=== PATIENT | female | born 1955 | race Caucasian/White ===

== ENCOUNTER → 2016-12-19 | Outpatient (CLI) | payer BC ==
[~2016-12-19] MED LIST: ALBU18002 INH; ALBU1AER9 INH; ASPI325T45 PO; ASPI81TA28 PO; ATOR-24 PO; DEXT30TA7 PO; DICY10CA12 PO; ESOM20CA PO; GABA-113 PO; GLUCTAB7 PO; HYDR-5688 PO; IBUP-103 PO; MULT-506 PO; PANT40TA PO; PROB1TAB16 PO
--- NOTE | 2016-12-19 13:13 | MAMMOGRAPHY REPORT ---
BILATERAL DIGITAL SCREENING MAMMOGRAM TOMOSYNTHESIS WITH CAD: 12/19/2016 CLINICAL HISTORY: Routine screening. Patient has no complaints. TECHNIQUE: Breast tomosynthesis in addition to standard 2D mammography was performed. Current study was also evaluated with a Computer Aided Detection (CAD) system. COMPARISON: Comparison is made to exams dated: 12/16/2015 mammogram, 12/14/2014 mammogram, 10/08/2013 brandy mogram, 09/07/2009 mammogram - [facility], 09/06/2008, and 09/05/2007. BREAST COMPOSITION: There are scattered areas of fibroglandular density in both breasts. FINDINGS: No suspicious masses, calcifications, or areas of architectural distortion are noted in ei ther breast. There has been no significant interval change compared to prior exams. IMPRESSION: ACR BI-RADS CATEGORY 1: NEGATIVE There is no mammographic evidence of malignancy. A 1 year screening mammogram is recommended. The pa tient will receive written notification of the results. Approximately 10% of breast cancers are not detected with mammography. A negative mammographic report should not delay biopsy if a clinically suggestive mass is present. Tiny Corley M.D. /:12/19/2016 07:45:38 Medicinal Plant Picker: Madeline Randle, M, [facility] letter sent: Normal 1/2 BI-RADS Code: ACR BI-RADS Category 1: Negative
== END ==
LOC: C.MAMM 07:26
PROVIDERS: ATTEND Family Medicine
DX: Z12.31 Encounter for screening mammogram for malignant neoplasm of breast (principal)

== ENCOUNTER → 2017-02-05 | Outpatient (CLI) | payer BC | END | disposition home or self-care (01) | LOC: C.RDSM 14:00 | PROVIDERS: ATTEND Physical Medicine & Rehabilitation Sports Medicine | DX: M25.561 Pain in right knee (principal) ==

== ENCOUNTER → 2017-04-08 | Outpatient (CLI) | payer BC ==
--- NOTE | 2017-04-08 12:17 | DIAGNOSTIC IMAGING REPORT ---
L LOWER EXT JOINT WITHOUT CLINICAL HISTORY: 61 years-old Female presenting with medial left knee pain for 1 month, right knee pain, possible overcompensating on left knee. TECHNIQUE: Multisequence, multiplanar MR imaging of the left knee was performed without the use of intravenous contrast. IV contrast: None. COMPARISON: Plain radiographs from 05/16/2015. FINDINGS: Localizer images: Unremarkable. Bony edema noted in the medial femoral condyle along the mid weightbearing portion with an irregular hypointense line delineating a separate subchondral lenticular region, consistent with an osteochondral lesion. No linear hyperintense signal to suggest an unstable fragment. The overlying articular cartilage demonstrates a focal defect at the posterior aspect, which is full-thickness and measures 4 x 5 mm (grade 4 cartilage injury). Remaining articular cartilage intact except for the superior aspect of the medial patellar facet, which demonstrates full-thickness fissuring and subjacent subchondral cystic change (grade 4 cartilage injury). Significantly increased signal intensity primarily within the intrasubstance portion of the junction of the posterior horn and body of the medial meniscus likely indicates advanced degenerative change (series 6 image 19). Minimal increased signal intensity may approach the femoral articular surface laterally, although this is questionable. Lateral meniscus intact. Anterior and posterior cruciate ligaments intact. Mild thickening of the origin of the medial collateral ligament with edema both superficial and deep to the MCL suggests grade 1 sprain. Lateral collateral ligament complex intact, including the biceps femoris tendon, fibular collateral ligament, popliteus tendon, and iliotibial band. Quadriceps and patellar tendons intact. Extensive prepatellar subcutaneous edema and trace laminar fluid. Medial and lateral patellar retinacula intact. Small knee joint effusion. Small popliteal cyst. Normal muscle bulk and signal intensity. IMPRESSION: 1. Findings consistent with osteochondral lesion of the medial femoral condyle in the mid weightbearing portion. This does not appear to be unstable. Extensive associated bony edema in the medial femoral condyle. Adjacent full-thickness cartilage defect as described above. 2. Full thickness fissuring and subchondral cystic change at the superior aspect of the medial patellar facet. 3. Significant degenerative change of the medial meniscus at the junction of the posterior horn and body with a questionable complex tear. 4. Grade 1 MCL sprain. 5. Prepatellar subcutaneous edema and trace laminar fluid could suggest prepatellar bursitis. 6. Small effusion. Electronically signed by: Teofilo Grossman M.D. 04/08/2017 12:16 PM Dictated Date/Time: 04/08/2017 12:03 PM
== END | disposition home or self-care (01) ==
LOC: C.MRI 10:36
PROVIDERS: ATTEND Physical Medicine & Rehabilitation Sports Medicine
DX: M25.562 Pain in left knee (principal)

== ENCOUNTER → 2017-04-18 | Day surgery (SDC) | payer BC ==
--- NOTE | 2017-04-12 14:58 | History and Physical ---
History & Physical Date & Time of Service: Apr 12, 2017 at 14:43 Chief Complaint: Left Knee Medial Meniscus Tear, Chondromalacia Primary Care Physician: Apryl Bridges D.O. History of Present Illness Source: patient The patient is a 61-year-old female who has been seen and evaluated by Dr. Mcrae as an outpatient for her left knee pain. She developed pain in her left knee in February. She denied any injuries but states the pain in the medial aspect of her left knee started in the beginning of February. She states that she does have pain at night. Pain noted is achy and radiates down her apple.She had had previous right knee problems and when she received a corticosteroid injection in her right knee did well with that. She agreed to corticosteroid injection and her left knee gently gave her a few days relief. X-rays were obtained and found some moderate arthritis of her right knee but no significant arthritis or bony abnormality of her left knee. Due to her continued symptoms and MRI was ordered and she was found to have a complex tear of her medial meniscus as well as medial compartment chondrosis. Due to these findings and her progressively worsening left knee pain surgical intervention was discussed. She agreed to proceed and is scheduled for left knee arthroscopy partial medial meniscectomy and chondroplasty with Dr. Mcrae on April 18, 2017 at the [facility] [place]. Past Medical/Surgical History 1. High cholesterol 2. Lumbar disc disease and spinal stenosis 3. Acid reflux 4. Small hiatal hernia 5. Osteoarthritis 6. She states that after her previous surgeries are carpal tunnel she did develop C. difficile. Social History Smoking Status: Never Smoker Smokeless Tobacco Use: No Alcohol Use: none Drug Use: none Multi-Drug Resistant Organisms History of MDRO: No Allergies Coded Allergies: Amoxicillin (Verified Allergy, Unknown, RASH, 02/23/16) Home Medications Scheduled Aspirin (Aspirin Ec), 81 MG PO QAM Atorvastatin (Lipitor), 40 MG PO QPM Gabapentin (Neurontin), 300 MG PO BID Multivitamin (Multivitamin), 1 TAB PO QAM Pantoprazole (Protonix), 40 MG PO QAM Scheduled PRN Albuterol (Proair Hfa), 1 PUFF INH for PRN Dicyclomine Hcl (Dicyclomine Hcl), 1 CAP PO TID PRN for IBS Ibuprofen Tab (Advil), 200-600 MG PO AMPM PRN for Pain Review of Systems Constitutional: No fever, No chills, No sweats, No weight loss Eyes: No worsening of vision, No eye pain, No redness ENT: No hearing loss, No nasal symptoms, No sore throat, No tinnitus, No dental problems Respiratory: No cough, No sputum, No wheezing, No shortness of breath, No dyspnea on exertion, No dyspnea at rest Cardiovascular: No chest pain, No edema, No palpitations Abdomen: No pain, No nausea, No vomiting, No diarrhea, No constipation Musculoskeletal: + joint pain (Left knee pain medially and posteriorly), No swelling, No calf pain Genitourinary - Female: No dysuria, No urinary frequency, No urinary urgency, No urinary incontinence, No urinary retention Neurologic: No memory loss, No numbness/tingling, No balance problems Psychiatric: No depression symptoms, No anxiety Endocrine: No fatigue Hematologic / Lymphatic: No abnormal bleeding/bruising, No clotting problems Integumentary: No rash, No itch Allergic / Immunologic: No poor healing Physical Exam General Appearance: WD/WN, no apparent distress Head: normocephalic, atraumatic Eyes: normal inspection, PERRL, EOMI, sclerae normal ENT: normal ENT inspection, hearing grossly normal, TMs normal, pharynx normal Neck: supple, no carotid bruits, trachea midline Respiratory/Chest: chest non-tender, lungs clear, normal breath sounds, no respiratory distress, no accessory muscle use Cardiovascular: regular rate, rhythm, no edema, no murmur, normal peripheral pulses Abdomen/GI: normal bowel sounds, non tender, soft Extremities/Musculoskelatal: normal inspection, no calf tenderness, normal capillary refill, no pedal edema, + pertinent finding (Exam of left knee: No effusion. No atrophy. Ambulates normally with no assistive device. Neutral alignment. Full range of motion of her left hip without discomfort. Dorsalis pedis pulses 1+. Active straight leg raise intact. Strength is 5 out of 5 and equal bilaterally. Range of motion of her left knee is 2/0/125. Cruciate and collateral ligaments are stable. Flexion circumduction testing is negative. Tenderness with palpation of her medial joint line.) Neurologic/Psych: no motor/sensory deficits, alert, normal mood/affect, normal reflexes, oriented x 3 Skin: normal color, warm/dry, no rash Lymphatic: no adenopathy Diagnostics No change from prior EKG Impression Assessment and Plan Assessment: Left knee medial meniscal tear, medial compartment chondrosis Plan: Patient is scheduled for left knee arthroscopy partial medial meniscectomy and chondroplasty with Dr. Mcrae. Has surgery scheduled for April 18, 2017 at the [facility]. Risks and complications were discussed and include but are not limited to infection, pain, bleeding, scarring, wound problems, weakness, nerve and blood vessel damage, incomplete relief of symptoms, recurrent tear, blood clots, embolisms, heart attack, stroke , . Informed consent was obtained by Dr. Mcrae. She does not require preoperative medical or cardiac clearance prior to surgery. 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 She will be nothing by mouth after midnight the night before surgery. She is given a prescription for [place] for postoperative pain control. We will use aspirin 325 mg twice daily for 21 days postoperatively for DVT prophylaxis. No lab work is necessary prior surgery. I will obtain a preoperative EKG she will do at the [facility]. All questions were answered today and she will call with any further problems, questions, or concerns. Resuscitation Status FULL RESUSCITATION Additional Copies To Apryl Bridges D.O.
[2017-04-15 07:36] VITALS: Ht 161.3 cm; Wt 73.6 kg
[~2017-04-18] VITALS: Ht 161.3 cm; Wt 73.6 kg
[~2017-04-18] MED LIST changes: -ALBU1AER9 INH; +ATROPINE SULFATE 0.1 MG/ML 5ML SYR IV PRN; +CEFAZOLIN IV 2,000 MG/60 ML D5W IV ONE; +CLINDAMYCIN PHOS 150 MG/ML 2 ML VIAL IV SCH; +DEXAMETHASONE SOD INJ 4 MG/ML VIAL ONE; +EpHEDrine SULFATE 50MG/5ML SYR ONE; +EpHEDrine SULFATE INJ 50 MG/ML AMP IV PRN; +FENTANYL CITRATE INJ 50 MCG/1 ML 2 ML VIAL IV PRN; +FENTANYL CITRATE INJ 50 MCG/1 ML 2 ML VIAL ONE; +KETOROLAC TROMETHAMINE 30 MG/ML VIAL ONE; +LACTATED RINGER'S 1000ML 1,000 ML IV SCH; +LIDOCAINE HCL 2% 2 ML VIAL (20MG/ML) ONE; +LIDOCAINE/EPINEPHRINE 1% INJ 50 ML VIAL ONE; +MIDAZOLAM HCL 1 MG/ML 2ML VIAL ONE; +MoRPHine SULFATE 4 MG/ML 1 ML CARP\\VIAL IV PRN; +ONDANSETRON INJ 2 MG/ML 2 ML VIAL IV PRN; +ONDANSETRON INJ 2 MG/ML 2 ML VIAL ONE; +OXYCODONE/ACETAMINOPHEN 5-325 TAB PO PRN; -PANT40TA PO; +PROPOFOL IV EMULSION 10 MG/ML 20 ML VIAL IV ONE; +SODIUM CHLORIDE 0.9% 1000ML 1,000 ML IV SCH
--- NOTE | 2017-04-18 08:57 | History & Physical Bridge Note ---
H&P Re-Evaluation Bridge Note: I have examined the patient, reviewed the History & Physical and in the interval since the performance of the History & Physical I have noted the following changes of clinical significance: No changes noted
--- NOTE | 2017-04-18 10:50 | Discharge Instructions-SurgCtr ---
Discharge Instructions Date of Service Apr 18, 2017. Visit Reason for Visit: Left Knee Medial Meniscus Tear, Chondromalacia Discharge Discharge Diagnosis / Problem: left knee medial meniscal tear. Chondromalacia. Discharge Goals Goal(s): Decrease discomfort, Improve function, Increase independence Medications Stopped Medications Name(s): stopped advil Saturday Restart Stopped Medication(s): Okay to resume Advil today. Please start taking aspirin 325 mg tonight with dinner if tolerating food. Activity Recommendations Activity Limitations: per Instructions/Follow-up section Weightbearing Status: Left weightbearing (as tolerated with assistance of crutches or walker) Anesthesia . Post Anesthesia Instructions: If you have had General Anesthesia or IV Sedation: * Do not drive today. * Resume driving when surgeon permits. * Do not make important decisions or sign legal documents today. * Call surgeon for: 1. Temperature elevations greater than 101 degrees F. 2. Uncontrollable pain. 3. Excessive bleeding. 4. Persistent nausea and vomiting. 5. Medication intolerance (nausea, vomiting or rash). * For nausea and vomiting use only clear liquids such as: tea, soda, bouillon until nausea subsides, then gradually increase diet as tolerated. * If you have any concerns or questions, call your surgeon's office. If physician is unavailable and it is an emergency, call 911 or go to the nearest emergency room. . Instructions / Follow-Up Instructions / Follow-Up The following are instructions to follow after your Arthroscopic Knee Surgery. ACTIVITY RECOMMENDATIONS: * Minimize activity until your first visit after surgery. * No excessive walking, jogging, sports or laboring. * Return to activity is individualized. Most patients are able to return to every day activities within one month. * Return to sports or intensive labor usually occurs at 2-3 months. * Driving is not permitted until at least your first postoperative visit at a minimum. Please ask your doctor when it is safe to resume driving. If you have an automatic vehicle and your left leg has been operated on, then you may begin driving as soon as you are comfortable and can drive safely. SCHOOL/WORK RECOMMENDATIONS: * You may return to sedentary work or school when you are feeling more comfortable. This is usually 3-7 days after surgery. * Expect increased discomfort with increased activity. Continue to elevate and ice the leg as much as possible. MEDICATIONS: * You will have a prescription for pain medication and an anti-inflammatory medication after surgery. * Use the pain medication for severe pain and the anti-inflammatory for less severe pain. Once the pain medication has run out, try to use the anti-inflammatory medication. If this is not effective, contact the office for assistance. * The pain medication may cause nausea, constipation and drowsiness. You should see how they affect you before driving or similar activity. * The anti-inflammatory medication may cause stomach upset and bleeding. If this occurs let your doctor know immediately . * Take a stool softener like Colace or a laxative like Senokot to prevent constipation. DIET: * Resume previous diet. SPECIAL CARE: ICE: You have the option of an ice cooler, gel packs or ice bags. * If you have an ice cooler, refer to the instructions for that device. The ice cooler may be used continuously. * If you do not have an ice cooler, you will need to use ice bags or gel packs. Do not apply ice directly to the skin. Use a thin dressing or eileen shirt between the skin and ice bag. Apply ice for 20-30 minutes and repeat every 2-4 hours. This is especially important for the first 7-10 days after surgery. Once the pain improves, use ice as needed. ELEVATION: * Keep your leg elevated at or above the level of your heart as much as possible. * Expect some increased discomfort and swelling if you are standing for any length of time. * When lying down, avoid placing anything under your knee. Rather, prop your leg up by placing several pillows under your heel or calf. DRESSING: * Your dressing will be changed at your first therapy appointment approximately 4-5 days after surgery. Band-aids, tape strips or gauze may be applied. You may then change your dressing daily. * Reapply dressing followed by the Carlos wrap or Tubi-mortician investigator stockinet and EBIce cooling pad (if chosen). * Always wash your hands prior to touching the incision area. * Once the stitches are removed, you may leave the wound open to air or cover with an Carlos wrap or Tubi-mortician investigator stockinet. * If you have been given a white elastic stocking (RAMIREZ hose), wear as much as possible for the first 1-3 weeks depending on swelling. * Expect some bloody drainage for the first few days after surgery. * Leave the tape strips, if present, in place for 5-7 days. * Band-aids and gauze may be changed daily. CRUTCHES: * You will need to use crutches after surgery. * You may gradually progress to full weight bearing as tolerated and wean off the crutches unless otherwise advised. * Your therapist can provide assistance weaning off crutches. * Patients who have a microfracture done may need to be toe-touch weight- bearing for 4-6 weeks. BATHING: * You may shower or sponge-bathe immediately after surgery. * The dressing will need to be covered with a plastic bag or plastic wrap until the dressing is changed on the fourth or fifth day after surgery. * Once the dressing has been changed on the fourth or fifth day after surgery, you may shower and get the incision wet. * Wash with regular soap and water. * Do not bathe (submerge the incision), soak, swim or use a hot tub until the incision is completely healed over with normal skin and the doctor has given the OK to proceed. * There is no need to apply any ointments, powders or salves to your incision. * Do not apply alcohol or hydrogen peroxide directly to the incision. * Diluted peroxide (50:50 mixture with sterile saline) may be used to clean dried blood from around the incision area. BRACE: * Bracing is generally not needed after routine Arthroscopic Knee surgery. THERAPY: * You will begin therapy four or five days after surgery. * Organized therapy with the therapist is important for the first 4-6 weeks after surgery. During that time you will attend therapy 1-3 times per week. * You will also need to do daily exercises for range of motion and strength as instructed. PROBLEMS/QUESTIONS: * If you have any problems such as severe pain, numbness, tingling or high fevers or if you have any questions, please contact the office at [phone]. * It is not uncommon to have some numbness and tingling after the surgery especially if you have had a nerve block done. This should gradually improve over the first 1- 2 days. If this persists longer or worsens please contact the office. FOLLOW UP VISIT: * If not already scheduled, please call the office at to schedule a follow-up appointment for 10 days, 6 weeks and 3 months after surgery. * You will have a physical therapy appointment on 04/23/2017 at 10:30 AM. * You have a follow-up scheduled with Dr. Mcrae on 05/01/2017 at 2:15 PM Diet Recommendations Home Diet: no limitations, resume previous diet Procedures Procedures Performed: Left Knee Arthroscopy Partial Medial and Lateral Meniscectomy, Chondroplasty of the Medial Femoral Condyl and Synovectomy Pending Studies Studies pending at discharge: no Medical Emergencies . Who to Call and When: Medical Emergencies: If at any time you feel your situation is an emergency, please call 911 immediately. . Non-Emergent Contact Non-Emergency issues call your: Surgeon Call Non-Emergent contact if: temperature is above 101, your pain is not controlled, wound has increased drainage, wound has increased redness, wound has increased pain, you have any medication questions . . "Provider Documentation" section prepared by Mylene Ortiz. . [place] Drug Monitoring Program Search Results: patient reviewed within database, no issues identified
--- NOTE | 2017-04-18 11:00 | [facility] Operative Report ---
Operative Report Operative Date Apr 18, 2017. Pre-Operative Diagnosis Left knee medial mensicus tear, chondromalacia Post-Operative Diagnosis Same as pre-op Procedure(s) Performed Left Knee Arthroscopy Partial Medial and Lateral Meniscectomy, Chondroplasty of the Medial Femoral Condyl and Synovectomy Surgeon Dr. Mcrae Commutator Tester Surgeon(s) Dr. Reji Rivera; Mylene Ortiz PA-C Estimated Blood Loss 10ML Findings degenerative medial and lateral meniscal tears Specimens None Drains none Anesthesia Gen. Disposition Recovery Room / PACU (stable) Indications She is a 61-year-old female with complaints of left knee pain times many months. She failed conservative treatment with and had persistent and worsening knee pain. X-rays and MRI was obtained. She was found to have a medial meniscal root tear and surgical intervention was recommended. X-rays were negative for significant joint space narrowing. She agreed to proceed with surgery. Risks and complications were discussed. Informed consent was obtained. Description of Procedure Patient was taken to the operating room and placed under general anesthesia. She was given 2 g of IV Ancef for surgical prophylaxis which she tolerated well. Timeout was performed. She was prepped and draped in routine sterile fashion. I was present during the entire case, please see Dr. Mcrae's operative report for further detail. Patient was awakened and transferred to the recovery room in stable condition. I attest to the content of the Intraoperative Record and any orders documented therein. Any exceptions are noted below.
--- NOTE | 2017-04-18 11:06 | [facility] Post Operative Brief Note ---
Immediate Operative Summary Operative Date Apr 18, 2017. Pre-Operative Diagnosis Left knee medial mensicus tear, chondromalacia Post-Operative Diagnosis Same as pre-op medial and lateral meniscal repairs grade 2 and 3 chondrosis and 4 chondrosis of the medial femoral condyle grade 1 chondrosis of the lateral tibial plateau Procedure(s) Performed Left Knee Arthroscopy Partial Medial and Lateral Meniscectomy, Chondroplasty of the Medial Femoral Condyl and Synovectomy Surgeon Dr. Mcrae Infant Room Teacher Surgeon(s) Dr. Reji Rivera; Mylene Ortiz PA-C Estimated Blood Loss 10ML Findings As above Specimens None Anesthesia laryngeal mask Complication(s) None Disposition Recovery Room / PACU
[2017-04-18 11:34] VITALS: TEMP 36.2
--- NOTE | 2017-04-18 12:03 | [facility] Operative Report ---
Operative Report Operative Date Apr 18, 2017. Pre-Operative Diagnosis Left knee medial mensicus tear, chondromalacia Post-Operative Diagnosis Same as pre-op medial and lateral meniscal repairs grade 2 and 3 chondrosis and 4 chondrosis of the medial femoral condyle grade 1 chondrosis of the lateral tibial plateau Procedure(s) Performed Left Knee Arthroscopy Partial Medial and Lateral Meniscectomy, Chondroplasty of the Medial Femoral Condyl and Synovectomy Surgeon Dr. Mcrae Pipe Manufacture Supervisor Surgeon(s) Dr. Reji Rivera; Mylene Ortiz PA-C Estimated Blood Loss 10ML Findings Medial and lateral posterior horn meniscal root tears. Grade 1 chondrosis of lateral femoral condyle. Grade 2-4 chondrosis medial femoral condyle. Specimens None Drains none Anesthesia laryngeal mask Complication(s) None Disposition Recovery Room / PACU Implants None Indications The patient's a 61-year-old female with left knee pain refractory to nonsurgical methods of management. MRI shows that she has a medial meniscal root tear and medial compartment chondrosis as well as bone edema consistent with medial compartment overload. Description of Procedure Informed consent was obtained. The patient identified as Zoraida Jama. She identified the operative site as the left knee. I marked with my initials. Preoperative surgical timeout was performed a preoperative dose of IV antibiotics was given. She reports developing C. difficile with prior dosage of clindamycin. She has a penicillin allergy. We talked about the risks and benefits and she elected to change her and antibiotic preoperatively to Ancef. She did not have any allergic reaction upon administration of this medication. DVT prophylaxis will be done intraoperatively with foot pumps postoperatively with early mobility and aspirin. The examination under anesthesia revealed a moderate left knee effusion range of motion 3/0/135 she had intact cruciate and collateral stability. The left lower extremity was prepped and draped in the usual sterile fashion. A tourniquet was not utilized. A lateral post was used for stressing the knee. Bony prominences were inspected and padded. Knee joint fat pad and portals were injected with 1% lidocaine with epinephrine preoperatively. Inferolateral viewing portal superior lateral outflow portal and inferomedial working portals were established. A small effusion consisting of yellowish fluid was evacuated. There was synovitis in the suprapatellar pouch which was debrided. The articular surface of the patella looked normal. The MRI indicated some chondrosis on the medial patella which was not notably abnormal on visual inspection. The trochlea was normal. The medial and lateral gutters were unremarkable there were no loose bodies. The retropatellar fat pad was resected. Lateral compartment showed grade 1 changes diffusely about the lateral tibial plateau and lateral femoral condyle. There was some fraying along the inner rim of the lateral meniscus which was debrided. There was significant fraying and degeneration at the posterior root attachment this was debrided. The meniscus was stable. A fair portion of the root attachment was compromised. This was not a repairable situation. I think that she did have intact meniscal femoral ligaments. The posterior lateral compartment was visualized and utilized to help in evaluating the lateral meniscus. The medial compartment showed fairly normal tibial plateau. There was a vertically oriented root tear of the medial meniscus. The meniscus was stable. Synovitis around the meniscal root was debrided and the edges of the tear was beveled with a basket biter. The posterior medial compartment was also visualized demonstrating the tear. There was extensive chondrosis 1 cm 3 cm. This was mostly grade 2 anteriorly but mostly grade 3 and 4 in the posterior half. The rere used to perform a chondroplasty. I do not think microfracture would be indicated in this situation. Rere on through need a pickup loose debris The portals were closed with 4 nylon a soft sterile dressing was applied. She was awakened from anesthesia without difficulty and taken to the recovery room in stable condition. There were no specimens or complications. Counts are correct in the case. Blood loss was minimal. At the conclusion operation spoke to her sister informed her my findings postoperative instructions were given. She'll be rehabilitated according to the arthroscopic meniscectomy protocol. Begin aspirin the night of surgery 325 mg twice a day for DVT prophylaxis. I attest to the content of the Intraoperative Record and any orders documented therein. Any exceptions are noted below.
--- NOTE | 2017-04-18 12:14 | Anesthesia Progress Nt - [facility] ---
Anesthesia Post Op Note Date & Time Apr 18, 2017 at 12:14 Vital Signs Pain Intensity: 2 Vital Signs Past 12 Hours Date Time Temp Pulse Resp B/P (MAP) Pulse Ox O2 Delivery O2 Flow Rate FiO2 04/18/17 11:34 36.2 61 18 174/98 (123) 95 Room Air 04/18/17 11:24 36.4 04/18/17 11:21 166/91 (103) 04/18/17 11:20 66 16 04/18/17 11:20 68 16 93 04/18/17 11:19 Room Air 04/18/17 11:16 175/89 (111) 04/18/17 11:15 53 20 100 04/18/17 11:15 53 20 04/18/17 11:11 168/89 (109) 04/18/17 11:10 52 13 100 04/18/17 11:10 52 13 04/18/17 11:06 166/84 (105) 04/18/17 11:05 54 17 04/18/17 11:05 55 17 100 04/18/17 11:01 171/89 (109) 04/18/17 11:00 55 13 99 04/18/17 11:00 55 13 04/18/17 10:56 172/91 (113) 04/18/17 10:55 57 16 04/18/17 10:55 57 16 99 04/18/17 10:51 156/85 (105) 04/18/17 10:50 64 16 99 04/18/17 10:50 63 16 04/18/17 10:48 158/89 (103) 04/18/17 10:45 36.1 65 16 158/89 98 Diffusion Mask 5 04/18/17 08:03 36.6 67 16 128/81 (97) 95 Room Air Notes Mental Status: alert / awake / arousable, participated in evaluation Pt Amnestic to Procedure: Yes Nausea / Vomiting: adequately controlled Pain: adequately controlled Airway Patency, RR, SpO2: stable & adequate BP & HR: stable & adequate Hydration State: stable & adequate Anesthetic Complications: no major complications apparent
[2017-04-18 12:41] VITALS: BP 166/82; PULSE 59; O2SAT 97
--- NOTE | 2017-04-26 06:48 | EDITING REQUIRED CODING QUERY ---
MENISCUS TEAR To promote full compliance with coding requirements relating to patient care physician participation is requested in all cases of rim fire priming tool setter uncertainty. Please assist us with the question(s) below: Please specify the type of Meniscus Tear by placing an "X" within the parenthesis (). If other please document type. ( x) Current Injury ( ) Old Injury ( ) Other: (Please Specify) Thank you Yuly España
== END | disposition home or self-care (01) ==
LOC: X.SURG 07:47
PROVIDERS: ATTEND Physical Medicine & Rehabilitation Sports Medicine
DX: S83.282A Other tear of lateral meniscus, current injury, left knee, initial encounter (principal); S83.242A Other tear of medial meniscus, current injury, left knee, initial encounter; M94.262 Chondromalacia, left knee; X58.XXXA Exposure to other specified factors, initial encounter; E78.00 Pure hypercholesterolemia, unspecified; Z88.1 Allergy status to other antibiotic agents; Z98.890 Other specified postprocedural states

== ENCOUNTER → 2018-02-10 | Outpatient (CLI) | payer OTHER ==
[~2018-02-10] MED LIST changes: +ASPECOTC PO; -ASPI325T45 PO; -ATROPINE SULFATE 0.1 MG/ML 5ML SYR IV PRN; -CEFAZOLIN IV 2,000 MG/60 ML D5W IV ONE; -CLINDAMYCIN PHOS 150 MG/ML 2 ML VIAL IV SCH; -DEXAMETHASONE SOD INJ 4 MG/ML VIAL ONE; -EpHEDrine SULFATE 50MG/5ML SYR ONE; -EpHEDrine SULFATE INJ 50 MG/ML AMP IV PRN; -FENTANYL CITRATE INJ 50 MCG/1 ML 2 ML VIAL IV PRN; -FENTANYL CITRATE INJ 50 MCG/1 ML 2 ML VIAL ONE; -HYDR-5688 PO; -KETOROLAC TROMETHAMINE 30 MG/ML VIAL ONE; -LACTATED RINGER'S 1000ML 1,000 ML IV SCH; -LIDOCAINE HCL 2% 2 ML VIAL (20MG/ML) ONE; -LIDOCAINE/EPINEPHRINE 1% INJ 50 ML VIAL ONE; -MIDAZOLAM HCL 1 MG/ML 2ML VIAL ONE; -MoRPHine SULFATE 4 MG/ML 1 ML CARP\\VIAL IV PRN; -ONDANSETRON INJ 2 MG/ML 2 ML VIAL IV PRN; -ONDANSETRON INJ 2 MG/ML 2 ML VIAL ONE; -OXYCODONE/ACETAMINOPHEN 5-325 TAB PO PRN; -PROPOFOL IV EMULSION 10 MG/ML 20 ML VIAL IV ONE; -SODIUM CHLORIDE 0.9% 1000ML 1,000 ML IV SCH
[2018-02-10 10:02] LABS: ALBUMIN 4.2 gm/dl (3.4-5.0); ALKALINE PHOSPHATASE 86 U/L (45-117); ALT/SGPT 35 U/L (12-78); AST/SGOT 27 U/L (15-37); BLOOD UREA NITROGEN 26 mg/dl (7-18); CALCIUM 9.5 mg/dl (8.5-10.1); CARBON DIOXIDE 26 mmol/L (21-32); CHOLESTEROL 167 mg/dl (0-200); CREATININE 1.04 mg/dl (0.60-1.20); GLUCOSE 96 mg/dl (70-99); LDL CHOLESTEROL CALCULATED 91 mg/dl; POTASSIUM 4.5 mmol/L (3.5-5.1); SODIUM 139 mmol/L (136-145); TOTAL PROTEIN 7.4 gm/dl (6.4-8.2)
== END | disposition home or self-care (01) ==
LOC: C.LAB1850 07:41
PROVIDERS: ATTEND Family Medicine
DX: E78.5 Hyperlipidemia, unspecified (principal)